=== PATIENT | female | born 1955 | race Caucasian/White ===

== ENCOUNTER 2018-11-11 12:15 | Emergency (ER) | payer MEDICAID, MEDICARE, OTHER ==
[~2018-11-11] VITALS: Ht 154.9 cm; Wt 77.0 kg
[~2018-11-11 12:15] MED LIST: KEPP500 PO
[2018-11-11] MEDS ORDERED: BACITRACIN ZINC OINT UDPKT TOP ONE (14:45)
[2018-11-11] MEDS ORDERED: TETANUS, DIPHTHERIA, PERTUSSIS VAC/PF 0.5ML (>7YR OLD) IM ONE (14:45)
[2018-11-11 15:04] VITALS: BP 130/60
== END 2018-11-11 15:05 | disposition home or self-care (01) ==
LOC: ER 12:24
DX: S91.031A Puncture wound without foreign body, right ankle, initial encounter (principal); R56.9 Unspecified convulsions; E03.9 Hypothyroidism, unspecified; Z98.890 Other specified postprocedural states; Z79.899 Other long term (current) drug therapy; W54.0XXA Bitten by dog, initial encounter; Y93.01 Activity, walking, marching and hiking; Y92.89 Other specified places as the place of occurrence of the external cause; Y99.8 Other external cause status
CPT/HCPCS: 90471; 90715; 99283